=== PATIENT | female | born 1995 | race Caucasian/White ===

== ENCOUNTER 2020-04-28 17:04 | Emergency (ER) | payer BC ==
[~2020-04-28] VITALS: Ht 177.8 cm; Wt 61.2 kg
--- NOTE | 2020-04-28 17:04 | NUR ---
BROUGHT BACK TO BED #6 AND TRIAGED. REPORT GIVEN TO ANGIE
[2020-04-28 17:05] VITALS: BP_SYST 116
--- NOTE | 2020-04-28 17:15 | NUR ---
Pt came to ER for R wrist pain after trip and fall at [employer], rates pain 5/10. Pt resting in gurney at this time, VSS, no other complaints at this time.
--- NOTE | 2020-04-28 17:19 | NUR ---
ER at bedside examining patient.
[2020-04-28 17:49] VITALS: BP_SYST 116
--- NOTE | 2020-04-28 17:50 | NUR ---
Patient given written and verbal discharge instructions and verbalizes understanding. ER MD discussed with patient the results and treatment provided. Patient in stable condition. ID arm band removed. No Rx of given. Patient educated on pain management and to follow up with PMD. Pain Scale 0/10. Opportunity for questions provided and answered. Medication side effect fact sheet provided.
== END 2020-04-28 17:50 | disposition home or self-care (01) ==
LOC: SED 17:04
DX: S60.221A Contusion of right hand, initial encounter (principal); W01.0XXA Fall on same level from slipping, tripping and stumbling without subsequent striking against object, initial encounter; Y93.89 Activity, other specified; Y92.524 Gas station as the place of occurrence of the external cause; Y99.8 Other external cause status
CPT/HCPCS: 99283